=== PATIENT | female | born 1960 | race Caucasian/White ===

== ENCOUNTER → 2017-07-13 | Outpatient (CLI) | payer OTHER | LOC: RAD 07-03 02:09 | DX: Z12.31 Encounter for screening mammogram for malignant neoplasm of breast (principal) ==

== ENCOUNTER → 2018-07-30 | Outpatient (CLI) | payer OTHER | LOC: RAD 13:11 | DX: Z12.31 Encounter for screening mammogram for malignant neoplasm of breast (principal) ==

== ENCOUNTER → 2019-08-12 | Outpatient (CLI) | payer OTHER | LOC: RAD 08-01 11:12 | DX: Z12.31 Encounter for screening mammogram for malignant neoplasm of breast (principal) ==

== ENCOUNTER → 2019-08-15 | Outpatient (CLI) | payer OTHER | LOC: ULTRA 08:33 | DX: N60.02 Solitary cyst of left breast (principal) ==

== ENCOUNTER → 2020-05-04 | Outpatient (CLI) | payer OTHER ==
[2020-05-04 12:51] LABS: ABSOLUTE NEUTROPHILS 2.9 thou/uL (1.4-8.2); HEMATOCRIT 39.2 % (37.0-47.0); HEMOGLOBIN 13.3 gm/dL (12.0-15.0); LYMPHOCYTES 35.4 % (24.0-44.0); MCH 30.9 pg (26.0-34.0); MCV 91.1 fL (80.0-100.0); MONOCYTES 7.5 % (1.0-8.0); PLATELET COUNT 235 thou/uL (150-400); POLYS 53.1 % (36.0-66.0); RBC 4.31 mil/uL (4.20-5.00); RDW 12.7 % (10.5-14.5); WBC 5.4 thou/uL (4.0-11.0)
[2020-05-04 13:08] LABS: ALBUMIN 4.2 g/dL (3.4-5.0); ANION GAP 8 mmol/L (7-16); BUN 18 mg/dL (7-18); CALCIUM 9.1 mg/dL (8.5-10.1); CHLORIDE 103 mmol/L (98-107); CHOLESTEROL 214 mg/dL (<200); CO2 30 mmol/L (21-32); CREATININE 0.8 mg/dL (0.6-1.0); GLUCOSE 97 mg/dL (74-106); HDL CHOLESTEROL 59 mg/dL (>40); LDL CHOLESTEROL 132 mg/dL (<100); POTASSIUM 4.1 mmol/L (3.5-5.1); SGOT 22 U/L (15-37); SGPT 45 U/L (30-65); SODIUM 141 mmol/L (136-145); TC:HDL 3.6 Ratio (Not establshd); TOTAL BILIRUBIN 0.7 mg/dL (0.2-1.0); TRIGLYCERIDE 116 mg/dL (<150); VLDL 23 mg/dL (<40)
== END ==
LOC: LAB 11:59
PROVIDERS: ATTEND Family Medicine
DX: E03.9 Hypothyroidism, unspecified (principal); E78.2 Mixed hyperlipidemia; E55.9 Vitamin D deficiency, unspecified

== ENCOUNTER → 2020-08-18 | Outpatient (CLI) | payer OTHER | LOC: BC 11:22 | PROVIDERS: ATTEND Family Medicine | DX: Z12.31 Encounter for screening mammogram for malignant neoplasm of breast (principal) ==

== ENCOUNTER 2021-05-03 13:53 | Emergency (ER) | payer OTHER ==
[~2021-05-03] VITALS: Ht 154.9 cm; Wt 65.8 kg
[2021-05-03 14:52] LABS: ABSOLUTE NEUTROPHILS 4.3 thou/uL (1.4-8.2); BASOPHILS 1.1 % (0.0-2.0); EOSINOPHILS 2.1 % (0.0-3.0); HEMATOCRIT 38.5 % (37.0-47.0); HEMOGLOBIN 13.1 gm/dL (12.0-15.0); LYMPHOCYTES 26.2 % (24.0-44.0); MCH 30.1 pg (26.0-34.0); MCV 88.7 fL (80.0-100.0); MONOCYTES 6.4 % (1.0-8.0); PLATELET COUNT 255 thou/uL (150-400); POLYS 64.2 % (36.0-66.0); RBC 4.34 mil/uL (4.20-5.00); RDW 12.7 % (10.5-14.5); WBC 6.6 thou/uL (4.0-11.0)
[2021-05-03 15:02] LABS: CALCIUM 9.3 mg/dL (8.5-10.1); CREATININE 0.9 mg/dL (0.6-1.0); POTASSIUM 3.6 mmol/L (3.5-5.1)
[2021-05-03 15:08] LABS: ALBUMIN 4.2 g/dL (3.4-5.0); TOTAL BILIRUBIN 0.6 mg/dL (0.2-1.0); TOTAL PROTEIN 7.1 g/dL (6.4-8.2)
--- NOTE | 2021-05-03 15:55 | EKG ---
[address] [address] ELECTROCARDIOGRAM REPORT Name: OLGA SCHROEDER SABIHA [facility]: [id number] Admission: 05/03/21 Attend Phys: Discharge: Date of : 64 Report #: [id number] [facility] ED Test Date: 2021-05-03 Test Time: 15:01:29 Pat Name: OLGA SCHROEDER Department: Room: Gender: F Piercing Specialist: mayi : 1960 Requested By: Sonido Frank Order Number: [id number] MD: Antonio Mccullough Measurements Intervals [place] Rate: 49 P: 38 WI: 182 QRS: 22 QRSD: 99 T: 49 QT: 472 QTc: 427 Interpretive Statements Sinus bradycardia Otherwise normal No previous ECG available for comparison Electronically Signed On 05-03-2021 15:55:22 CDT by Antonio Mccullough [email or web address] <ELECTRONICALLY SIGNED> By: Antonio Mccullough MD, [facility] 05/03/21 1555 1501 1501 Antonio Mccullough MD, FACC /EPI
[2021-05-03] MEDS ORDERED: ONDANSETRON HCL4 M2 PO (17:15)
[2021-05-03 17:24] VITALS: BP 154/68
== END 2021-05-03 17:24 | disposition home or self-care (01) ==
LOC: ER 13:53
PROVIDERS: Nurse Practitioner
DX: R11.2 Nausea with vomiting, unspecified (principal); R42 Dizziness and giddiness; Z20.822 Contact with and (suspected) exposure to COVID-19

== ENCOUNTER → 2021-05-12 | Outpatient (CLI) | payer OTHER ==
[~2021-05-12] MED LIST: ONDANSETRON HCL4 M2 PO
[2021-05-12 12:34] LABS: ALBUMIN 4.2 g/dL (3.4-5.0); ANION GAP 9 mmol/L (7-16); BUN 19 mg/dL (7-18); CHLORIDE 106 mmol/L (98-107); CHOLESTEROL 214 mg/dL (<200); CO2 27 mmol/L (21-32); CREATININE 0.9 mg/dL (0.6-1.0); GLUCOSE 95 mg/dL (74-106); HDL CHOLESTEROL 52 mg/dL (>40); LDL CHOLESTEROL 132 mg/dL (<100); POTASSIUM 4.2 mmol/L (3.5-5.1); SGOT 15 U/L (15-37); SGPT 41 U/L (30-65); SODIUM 142 mmol/L (136-145); TC:HDL 4.1 Ratio (Not establshd); TOTAL BILIRUBIN 0.7 mg/dL (0.2-1.0); TOTAL PROTEIN 7.1 g/dL (6.4-8.2); TRIGLYCERIDE 150 mg/dL (<150); VLDL 30 mg/dL (<40)
== END ==
LOC: RAD 11:28
PROVIDERS: ATTEND Family Medicine
DX: M77.32 Calcaneal spur, left foot (principal); M79.672 Pain in left foot; E78.5 Hyperlipidemia, unspecified; E55.9 Vitamin D deficiency, unspecified; E03.9 Hypothyroidism, unspecified

== ENCOUNTER → 2021-08-12 | Outpatient (CLI) | payer OTHER | LOC: BC 08:39 | PROVIDERS: ATTEND Family Medicine | DX: Z12.31 Encounter for screening mammogram for malignant neoplasm of breast (principal); N64.89 Other specified disorders of breast ==